=== PATIENT | male | born 1995 | race Caucasian/White ===

== ENCOUNTER 2017-02-01 09:45 | Emergency (ER) | payer OTHER ==
[2017-02-01 09:50] VITALS: BP 126/70; PULSE 91; TEMP 98.7; BMI 25.7
[2017-02-01] MEDS ORDERED: DEXAMETHASONE SOD PHOSPHATE 10 MG/1 ML VIAL IM ONE (10:14)
[2017-02-01] MEDS ORDERED: DEXAMETHASONE SOD PHOSPHATE 10 MG/1 ML VIAL ONE (10:22)
--- NOTE | 2017-02-01 10:23 | PDOC ---
History of Present Illness - General Chief Complaint: Sore Throat Stated Complaint: THROAT PAIN Time Seen by Provider: 02/01/17 10:06 History Source: Patient Exam Limitations: No Limitations - History of Present Illness Initial Comments: 02/01/17 10:14 Patient is here with complaints of persistent sore throat pain. was seen at urgent care yesterday where they did a rapid strep that was negative. Discussed possibility of mono but patient states was not tested. No medications other than ibuprofen or provided. Patient states was an acute onset with fevers of 102.2 days ago, fevers yesterday, has no fever today but states has significant swelling and tenderness to throat. Able to swallow fluids but is becoming more difficult. Timing/Duration: other (2 days ) Severity: mild Associated Symptoms: reports: denies symptoms Past History - Travel Traveled outside of the country in the last 30 days: No Close contact w/someone who was outside of country & ill: No - Past Medical History Allergies/Adverse Reactions: Allergies Allergy/AdvReac Type Severity Reaction Status Date / Time No Known Allergies Allergy Verified 02/01/17 09:50 Home Medications: Ambulatory Orders NK [No Known Home Medication] 02/01/17 Other medical history: PATIENT DENIES MEDICAL HX - Suicide/Smoking/Psychosocial Hx Smoking History: Current every day smoker Number of Cigarettes Smoked Daily: 12 Information on smoking cessation initiated: No Hx Alcohol Use: No Drug/Substance Use Hx: Yes Substance Use Type: Marijuana Review of Systems - Review of Systems Able to Perform ROS?: Yes Is the patient limited Sinhala proficient: Yes Constitutional: Yes: Symptoms Reported, See HPI, Fever, Loss of Appetite, Malaise HEENTM: Yes: Symptoms Reported, See HPI, Throat Pain, Throat Swelling, Difficulty Swallowing Respiratory: Yes: See HPI. No: Symptoms reported, Cough ABD/GI: Yes: See HPI. No: Symptoms Reported Musculoskeletal: Yes: See HPI. No: Symptoms Reported Integumentary: Yes: See HPI, Pallor. No: Symptoms Reported All Other Systems: Reviewed and Negative *Physical Exam - Vital Signs Last Vital Signs Temp Pulse Resp BP Pulse Ox 98.7 F 91 H 18 126/70 97 02/01/17 09:47 02/01/17 09:47 02/01/17 09:47 02/01/17 09:47 02/01/17 09:47 - Physical Exam General Appearance: Yes: Nourished, Appropriately Dressed, Apparent Distress, Moderate Distress HEENT: positive: PORFIRIO, TMs Normal, Pharynx Normal, Tonsillar Exudate, Tonsillar Erythema, Nasal Congestion (tested but landmarks easily visualized) Neck: positive: Supple, Lymphadenopathy (R), Lymphadenopathy (L) Respiratory/Chest: positive: Lungs Clear (tender), Normal Breath Sounds Cardiovascular: positive: Regular Rate Gastrointestinal/Abdominal: positive: Soft Musculoskeletal: positive: Normal Inspection Extremity: positive: Normal Inspection, Normal Range of Motion Integumentary: positive: Normal Color, Dry, Warm Neurologic: positive: academic associate II-XII NML intact, Fully Oriented, Alert, Normal Mood/ Affect, Normal Response, Motor Strength 08/29 Medical Decision Making - Medical Decision Making 02/01/17 10:25 02/01/17 11:20 Rapid strep test positive, we'll treat with Bicillin, 10mg Decadron given 02/01/17 11:20 *DC/Admit/Observation/Transfer Diagnosis at time of Disposition: Strep pharyngitis - Discharge Dispostion Disposition: HOME Condition at time of disposition: Stable Admit: No - Patient Instructions Printed Discharge Instructions: DI for Strep Throat Additional Instructions: Rest, drink lots of fluids: Teas, water, soups Eat cold things: Ice cream, ice pops, ice chips Saltwater gargles Steamy showers/seem to face break up mucus Avoid contact with others until fevers and pain resolved Lots of handwashing and good hygiene, this is contagious You have been treated with Bicillin LA 1.2 million units injection which is a one-time treatment for strep pharyngitis. You will not need to take any further antibiotics. Tylenol or Motrin for fever and pain Followup with private physician in one to 2 days as needed if not improving Return to emergency department for worsened symptoms, fevers, dehydration - Post Discharge Activity Forms/Work/School Notes: Back to Work
[2017-02-01] MEDS ORDERED: PENICILLIN G BENZATHINE 2,400,000 UNIT/4 ML PFS ONE (11:10)
== END 2017-02-01 11:41 | disposition home or self-care (01) ==
LOC: JERFT 09:45
PROC: 3E023GC Introduction of Other Therapeutic Substance into Muscle, Percutaneous Approach (ICD-10-PCS; principal; 2017-02-01)
DX: J02.0 Streptococcal pharyngitis (principal); F17.210 Nicotine dependence, cigarettes, uncomplicated
CPT/HCPCS: 36415; 86308; 87070; 87077; 87430; 99281-25

== ENCOUNTER 2017-05-06 14:33 | Emergency (ER) | payer OTHER ==
[2017-05-06 14:50] VITALS: BP 140/95; TEMP 99.2; BMI 26.1
--- NOTE | 2017-05-06 14:50 | PDOC ---
Rapid Medical Evaluation Medical Evaluation: Allergies Allergy/AdvReac Type Severity Reaction Status Date / Time No Known Allergies Allergy Verified 02/01/17 09:50 05/06/17 14:47 I have performed a brief in-person evaluation of this patient. The patient presents with a chief complaint of: tonsils feel swollen, unsure if fevers, sore throat, had strep 5 months ago, pain with swallowing Pertinent physical exam findings: no tonsillar erythema/exudate I have ordered the following: strep swab The patient will proceed to the ED for further evaluation. Discharge Disposition - Diagnosis Throat pain - Referrals - Patient Instructions - Post Discharge Activity
[2017-05-06] MEDS ORDERED: IBUPROFEN 400 MG TABLET (FP) PO ONE ×2 (15:39→15:40)
--- NOTE | 2017-05-06 15:39 | PDOC ---
History of Present Illness - General Chief Complaint: Sore Throat Stated Complaint: Sore Throat Time Seen by Provider: 05/06/17 14:50 History Source: Patient - History of Present Illness Timing/Duration: reports: other Associated Symptoms: reports: fever/chills, sore throat. denies: cough, earache Past History - Past Medical History Allergies/Adverse Reactions: Allergies Allergy/AdvReac Type Severity Reaction Status Date / Time No Known Allergies Allergy Verified 05/06/17 14:50 COPD: No - Suicide/Smoking/Psychosocial Hx Smoking History: Current every day smoker Number of Cigarettes Smoked Daily: 10 Information on smoking cessation initiated: No Hx Alcohol Use: Yes (SOCIAL) Drug/Substance Use Hx: No Substance Use Type: None Review of Systems - Review of Systems Constitutional: Yes: Chills, Fever HEENTM: Yes: Throat Pain Respiratory: No: Cough *Physical Exam - Vital Signs Last Vital Signs Temp Pulse Resp BP Pulse Ox 99.2 F 116 H 20 140/95 96 05/06/17 14:45 05/06/17 14:45 05/06/17 14:45 05/06/17 14:45 05/06/17 14:45 - Physical Exam General Appearance: Yes: Appropriately Dressed. No: Apparent Distress HEENT: positive: Normal ENT Inspection, Normal Voice, Tonsillar Erythema (to L tonsils, no uvular deviation). negative: Scleral Icterus (R), Scleral Icterus ( L), Tonsillar Exudate Neck: positive: Supple. negative: Lymphadenopathy (R), Lymphadenopathy (L) Respiratory/Chest: negative: Respiratory Distress Integumentary: positive: Dry, Warm Neurologic: positive: Fully Oriented, Alert, Normal Mood/Affect Medical Decision Making - Medical Decision Making 05/06/17 15:38 20-year-old male, no significant history here with sore throat and possible subjective fever x several days. Had strep throat 5 months ago per patient. 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 Rapid strep positive. Patient requesting IM injection instead of po antibiotics. Repeat vitals with heart rate of 93, without any intervention. *DC/Admit/Observation/Transfer Diagnosis at time of Disposition: Strep pharyngitis - Discharge Dispostion Disposition: HOME Condition at time of disposition: Good - Referrals - Patient Instructions Printed Discharge Instructions: DI for Strep Throat Additional Instructions: Your strep test was positive. Your given an IM injection of penicillin, which is sufficient to eradicate bacteria. Take Motrin as needed for pain. Return for worsening of symptoms - Post Discharge Activity
[2017-05-06 16:03] VITALS: PULSE 93
[2017-05-06] MEDS ORDERED: PENICILLIN G BENZATHINE 2,400,000 UNIT/4 ML PFS IM ONE (16:08)
[2017-05-06] MEDS ORDERED: PENICILLIN G BENZATHINE 2,400,000 UNIT/4 ML PFS ONE (16:10)
[2017-05-06] MEDS ORDERED: PENICILLIN G BENZATHINE 1,200,000 UNIT/2 ML PFS IM ONE (16:14)
== END 2017-05-06 16:20 | disposition home or self-care (01) ==
LOC: JERFT 14:33
DX: J02.0 Streptococcal pharyngitis (principal)
CPT/HCPCS: 87070; 87077; 87430; 99281-25